=== PATIENT | female | born 1965 | race African-American/Black ===

== ENCOUNTER 2020-11-01 07:55 | Inpatient (IN) | payer MEDICAID, OTHER ==
[~2020-11-01] VITALS: Ht 160 cm; Wt 59.0 kg
[2020-11-01 09:18] LABS: BASOPHILS % 0.8 % (0.0-2.0); EOSINOPHILS % 2.6 % (0.0-5.0); HEMATOCRIT. 32.1 % (36.0-48.0); HEMOGLOBIN. 10.1 g/dL (12.0-16.0); LYMPHOCYTES % 8.7 % (20.0-50.0); MEAN CORPUSCULAR VOLUME 98.2 fL (81.0-99.0); MEAN PLATELET VOLUME 7.5 fl (7.4-10.4); MONOCYTES % 11.7 % (2.0-8.0); NEUTROPHILS % 76.2 % (40.0-76.0); PLATELET 217 x1000/uL (130-400); RED BLOOD CELL COUNT 3.27 mill/uL (4.2-5.4); RED CELL DISTRIBUTION WIDTH 15.4 % (11.6-14.6)
[2020-11-01 09:24] LABS: CHLORIDE 98 mEq/L (98-107)
[2020-11-01 09:29] LABS: ETHANOL BLOOD < 10 mg/dL
[2020-11-01 09:30] LABS: INR 1.2; PROTHROMBIN TIME 12.4 sec (9.6-11.0)
[2020-11-01] MEDS ORDERED: MORPHINE SULFATE 2 MG/ML CPJ (NOT FOR IM USE) IV ONE ×2 (09:30→11:30)
[2020-11-01] MEDS ORDERED: DEXTROSE 50% WATER 50ML SYRINGE IV ONE (11:00)
[2020-11-01] MEDS ORDERED: INSULIN REGULAR (HUMULIN R) 300UNITS/3ML VIAL IV ONE (11:00)
[2020-11-01] MEDS ORDERED: SODIUM POLYSTYRENE SULFONATE 15 G/60 ML BOT PO ONE (11:00)
[2020-11-01] MEDS ORDERED: CALCIUM GLUCONATE 100MG/ML 10ML VIAL IV ONE (11:00)
[2020-11-01] MEDS ORDERED: ONDANSETRON HCL 4MG/2ML INJ IV PRN (12:00)
[2020-11-01] MEDS ORDERED: DIPHENHYDRAMINE 50MG/ML VIAL IV PRN (12:00)
[2020-11-01 14:30] VITALS: BP 165/88
[2020-11-01 15:23] VITALS: BP 165/88
[2020-11-01] MEDS: CLONIDINE 0.1MG TABLET PO PRN ×2 (15:46→21:47)
[2020-11-01] MEDS: MORPHINE SULFATE 2 MG/ML CPJ (NOT FOR IM USE) IV PRN ×2 (16:51→21:08)
[2020-11-01] MEDS ORDERED: HYDRALAZINE 20MG/ML VIAL IV PRN (18:45)
[2020-11-01] MEDS: HYDROMORPHONE HCL/PF 2MG/ML CPJ IV PRN (19:27)
[2020-11-01 20:00] VITALS: BP 181/102
[2020-11-02] VITALS: BP 156/82
[2020-11-02] MEDS: HYDROMORPHONE HCL/PF 2MG/ML CPJ IV PRN ×2 (02:41→08:57)
[2020-11-02] MEDS: ACETAMINOPHEN 325MG TABLET PO PRN (04:36)
[2020-11-02 08:03] VITALS: BP 158/86
[2020-11-02 18:35] VITALS: BP 171/98
[2020-11-02] MEDS: CLONIDINE 0.1MG TABLET PO PRN (18:37)
[2020-11-02] MEDS: HYDROCODONE/ACETAMINOPHEN 5/325MG TABLET PO PRN (18:38)
[2020-11-02 20:00] VITALS: BP 143/85
[2020-11-03] VITALS: BP 149/90
[2020-11-03] MEDS: HYDROCODONE/ACETAMINOPHEN 5/325MG TABLET PO PRN ×2 (03:59→11:05)
[2020-11-03 04:00] VITALS: BP 151/92
[2020-11-03 08:00] VITALS: BP 165/97
[2020-11-03 12:00] VITALS: BP 169/100
[2020-11-03] MEDS: AMLODIPINE 5MG TABLET PO SCH (14:30)
[2020-11-03] MEDS: ACETAMINOPHEN 325MG TABLET PO PRN (14:30)
[2020-11-03] MEDS: LORAZEPAM 1MG TABLET PO PRN (14:30)
[2020-11-03 16:00] VITALS: BP 181/111
[2020-11-03] MEDS: CLONIDINE 0.1MG TABLET PO PRN ×2 (17:55→22:56)
[2020-11-03 23:47] VITALS: BP 163/98
[2020-11-04] MEDS: HYDROCODONE/ACETAMINOPHEN 5/325MG TABLET PO PRN ×2 (02:39→12:52)
[2020-11-04 03:59] VITALS: BP 155/90
[2020-11-04 08:00] VITALS: BP 196/85
[2020-11-04] MEDS: CLONIDINE 0.1MG TABLET PO PRN ×2 (08:42→15:02)
[2020-11-04] MEDS: AMLODIPINE 5MG TABLET PO SCH (08:42)
[2020-11-04 12:00] VITALS: BP 172/114
[2020-11-04 16:00] VITALS: BP 181/95
[2020-11-04] MEDS: LORAZEPAM 1MG TABLET PO PRN (17:11)
[2020-11-04] MEDS: ACETAMINOPHEN 325MG TABLET PO PRN (17:12)
[2020-11-04 20:00] VITALS: BP 172/104
[2020-11-05 04:00] VITALS: BP 209/129
[2020-11-05] MEDS: CLONIDINE 0.1MG TABLET PO PRN ×2 (05:23→12:01)
[2020-11-05 08:00] VITALS: BP 174/104
[2020-11-05] MEDS: AMLODIPINE 5MG TABLET PO SCH (08:29)
[2020-11-05] MEDS: HYDROCODONE/ACETAMINOPHEN 5/325MG TABLET PO PRN (08:29)
[2020-11-05] MEDS: LORAZEPAM 1MG TABLET PO PRN (12:01)
[2020-11-05 20:00] VITALS: BP 169/99
[2020-11-06 04:00] VITALS: BP 165/97
[2020-11-06 08:08] VITALS: BP 166/95
[2020-11-06] MEDS: AMLODIPINE 5MG TABLET PO SCH ×2 (08:51→16:54)
[2020-11-06] MEDS: HYDROCODONE/ACETAMINOPHEN 5/325MG TABLET PO PRN ×2 (09:58→16:55)
[2020-11-06 12:01] VITALS: BP 173/107
[2020-11-06] MEDS: CLONIDINE 0.1MG TABLET PO PRN (16:53)
[2020-11-06 16:55] VITALS: BP 180/102
[2020-11-06 20:00] VITALS: BP 154/94
[2020-11-07 04:00] VITALS: BP 176/103
[2020-11-07] MEDS: HYDROCODONE/ACETAMINOPHEN 5/325MG TABLET PO PRN ×2 (05:16→17:53)
[2020-11-07] MEDS: AMLODIPINE 5MG TABLET PO SCH (08:22)
[2020-11-07 11:00] VITALS: BP 177/101
[2020-11-07] MEDS ORDERED: HYDRALAZINE 10 MG in SODIUM CHLORIDE 0.9% 49.5 ML IV PRN (11:15)
[2020-11-07] MEDS: CLONIDINE 0.1MG TABLET PO PRN ×2 (11:25→17:53)
[2020-11-07 20:00] VITALS: BP 162/86
[2020-11-08 08:00] VITALS: BP 179/105
[2020-11-08] MEDS: AMLODIPINE 5MG TABLET PO SCH (10:15)
[2020-11-08] MEDS: HYDROCODONE/ACETAMINOPHEN 5/325MG TABLET PO PRN (10:15)
[2020-11-08 12:00] VITALS: BP 183/106
[2020-11-08] MEDS: CLONIDINE 0.1MG TABLET PO PRN (13:18)
[2020-11-08] MEDS: LORAZEPAM 1MG TABLET PO PRN (22:28)
[2020-11-09] VITALS: BP 186/115
[2020-11-09 04:00] VITALS: BP 131/80
[2020-11-09] MEDS: CLONIDINE 0.1MG TABLET PO PRN (09:36)
[2020-11-09] MEDS: AMLODIPINE 5MG TABLET PO SCH (09:36)
[2020-11-09] MEDS: LORAZEPAM 1MG TABLET PO PRN (09:36)
[2020-11-09] MEDS: HYDROCODONE/ACETAMINOPHEN 5/325MG TABLET PO PRN (16:29)
[2020-11-09] MEDS ORDERED: HYDRALAZINE 20MG/ML VIAL IV PRN (23:00)
[2020-11-10] MEDS: HYDROCODONE/ACETAMINOPHEN 5/325MG TABLET PO PRN ×2 (04:59→09:09)
[2020-11-10] MEDS: AMLODIPINE 5MG TABLET PO SCH (08:59)
[2020-11-10] MEDS: CLONIDINE 0.1MG TABLET PO PRN (08:59)
[2020-11-10 09:00] VITALS: BP 189/110
[2020-11-11] VITALS: BP 173/98
[2020-11-11] MEDS: HYDROCODONE/ACETAMINOPHEN 5/325MG TABLET PO PRN ×2 (00:12→16:37)
[2020-11-11 08:00] VITALS: BP 198/99
[2020-11-11] MEDS: AMLODIPINE 5MG TABLET PO SCH (09:42)
[2020-11-11 12:00] VITALS: BP 148/90
[2020-11-11 16:00] VITALS: BP 200/119
[2020-11-11] MEDS: CLONIDINE 0.1MG TABLET PO PRN (16:36)
[2020-11-11 19:12] LABS: BASOPHILS % 1.4 % (0.0-2.0); EOSINOPHILS % 6.6 % (0.0-5.0); HEMATOCRIT. 24.5 % (36.0-48.0); HEMOGLOBIN. 8.1 g/dL (12.0-16.0); LYMPHOCYTES % 7.6 % (20.0-50.0); MEAN CORPUSCULAR HEMOGLOBIN 31.9 pg (28.0-32.0); MEAN CORPUSCULAR VOLUME 96.9 fL (81.0-99.0); MEAN PLATELET VOLUME 8.3 fl (7.4-10.4); MONOCYTES % 12.2 % (2.0-8.0); NEUTROPHILS % 72.2 % (40.0-76.0); PLATELET 248 x1000/uL (130-400); RED BLOOD CELL COUNT 2.53 mill/uL (4.2-5.4); RED CELL DISTRIBUTION WIDTH 14.7 % (11.6-14.6)
[2020-11-11 19:54] LABS: HEPATITIS B SURFACE AB < 3.1 mIU/mL
[2020-11-11 20:00] VITALS: BP 182/99
[2020-11-11 20:04] LABS: HEPATITIS B SURFACE ANTIGEN NEGATIVE
[2020-11-11 20:34] LABS: HEPATITIS A AB IGM NEGATIVE (NEGATIVE)
[2020-11-12] VITALS: BP 181/106
[2020-11-12 04:00] VITALS: BP 195/108
[2020-11-12 08:00] VITALS: BP 171/104
[2020-11-12] MEDS: HYDROCODONE/ACETAMINOPHEN 5/325MG TABLET PO PRN ×2 (10:30→15:45)
[2020-11-12] MEDS: AMLODIPINE 5MG TABLET PO SCH (10:33)
[2020-11-12 15:32] VITALS: BP 177/104
[2020-11-12] MEDS: CLONIDINE 0.1MG TABLET PO PRN (15:35)
[2020-11-13 05:08] LABS: HIV SCREEN 4G Non Reactive (Non Reactive)
[2020-11-13 08:00] VITALS: BP 160/90
[2020-11-13] MEDS: HYDROCODONE/ACETAMINOPHEN 5/325MG TABLET PO PRN (10:40)
[2020-11-13] MEDS: AMLODIPINE 5MG TABLET PO SCH (10:40)
[2020-11-13] MEDS: LORAZEPAM 1MG TABLET PO PRN (16:46)
[2020-11-13 20:00] VITALS: BP 167/90
[2020-11-13 22:00] VITALS: BP 159/93
[2020-11-14] MEDS: ACETAMINOPHEN 325MG TABLET PO PRN ×4 (02:14→21:52)
[2020-11-14 04:00] VITALS: BP 159/89
[2020-11-14] MEDS: AMLODIPINE 5MG TABLET PO SCH (09:24)
[2020-11-14 16:00] VITALS: BP 170/97
[2020-11-14] MEDS: CLONIDINE 0.1MG TABLET PO PRN (16:36)
[2020-11-15] MEDS: AMLODIPINE 5MG TABLET PO SCH (08:47)
[2020-11-15] MEDS: HYDROCODONE/ACETAMINOPHEN 5/325MG TABLET PO PRN (12:47)
[2020-11-15] MEDS: ACETAMINOPHEN 325MG TABLET PO PRN (21:03)
[2020-11-16] MEDS: AMLODIPINE 5MG TABLET PO SCH (09:23)
[2020-11-16] MEDS: ACETAMINOPHEN 325MG TABLET PO PRN (13:01)
[2020-11-16 20:00] VITALS: BP 171/101
[2020-11-16] MEDS: HYDROCODONE/ACETAMINOPHEN 5/325MG TABLET PO PRN (20:27)
[2020-11-16] MEDS: CLONIDINE 0.1MG TABLET PO PRN (20:28)
[2020-11-17] MEDS: HYDROCODONE/ACETAMINOPHEN 5/325MG TABLET PO PRN (02:53)
[2020-11-17 04:00] VITALS: BP 165/91
[2020-11-17 08:00] VITALS: BP 163/96
[2020-11-17] MEDS: AMLODIPINE 5MG TABLET PO SCH (09:00)
[2020-11-17 12:00] VITALS: BP 162/93
[2020-11-17] MEDS ORDERED: AMLO5TAB88 PO (15:42)
[2020-11-17 16:00] VITALS: BP 143/79
[2020-11-17] MEDS: ACETAMINOPHEN 325MG TABLET PO PRN (22:21)
[2020-11-17] MEDS: CLONIDINE 0.1MG TABLET PO PRN (23:52)
[2020-11-18] VITALS: BP 189/104
[2020-11-18 00:12] LABS: HEMATOCRIT. 22.9 % (36.0-48.0); HEMOGLOBIN. 7.4 g/dL (12.0-16.0); MEAN CORPUSCULAR HEMOGLOBIN 31.5 pg (28.0-32.0); MEAN CORPUSCULAR VOLUME 97.5 fL (81.0-99.0); MEAN PLATELET VOLUME 8.3 fl (7.4-10.4); PLATELET 222 x1000/uL (130-400); RED BLOOD CELL COUNT 2.35 mill/uL (4.2-5.4); RED CELL DISTRIBUTION WIDTH 14.6 % (11.6-14.6)
[2020-11-18] MEDS: ACETAMINOPHEN 325MG TABLET PO PRN (06:33)
[2020-11-18 07:14] LABS: PLATELET ESTIMATE NORMAL
[2020-11-18] MEDS: AMLODIPINE 5MG TABLET PO SCH (09:00)
[2020-11-18] MEDS ORDERED: HYDRALAZINE HCL 50MG TABLET PO SCH (14:00)
[2020-11-19] MEDS ORDERED: EPOETIN ALFA 10000UNITS/ML VIAL SUBCUT SCH (21:00)
== END 2020-11-18 10:10 | disposition home or self-care (01) | DRG 425 ==
LOC: ER 08:14 → 6WST 11:10 → EDBEDREQTM 11:12 → EDBEDREQ 11:12 → ENRESERV 13:08 → 6EST 11-07 10:32 → 7WST 11-09 22:52 → 8WST 11-11 01:34
PROVIDERS: ADMIT Internal Medicine; ATTEND Internal Medicine
PROC: 5A1D70Z Performance of Urinary Filtration, Intermittent, Less than 6 Hours Per Day (ICD-10-PCS; principal; 2020-11-01)
PROC: 5A1D70Z Performance of Urinary Filtration, Intermittent, Less than 6 Hours Per Day (ICD-10-PCS; 2020-11-03)
PROC: 5A1D70Z Performance of Urinary Filtration, Intermittent, Less than 6 Hours Per Day (ICD-10-PCS; 2020-11-04)
PROC: 5A1D70Z Performance of Urinary Filtration, Intermittent, Less than 6 Hours Per Day (ICD-10-PCS; 2020-11-09)
PROC: 5A1D70Z Performance of Urinary Filtration, Intermittent, Less than 6 Hours Per Day (ICD-10-PCS; 2020-11-14)
PROC: 5A1D70Z Performance of Urinary Filtration, Intermittent, Less than 6 Hours Per Day (ICD-10-PCS; 2020-11-15)
PROC: 5A1D70Z Performance of Urinary Filtration, Intermittent, Less than 6 Hours Per Day (ICD-10-PCS; 2020-11-16)
DX: E87.5 Hyperkalemia (principal); I12.0 Hypertensive chronic kidney disease with stage 5 chronic kidney disease or end stage renal disease; Z99.2 Dependence on renal dialysis; N18.6 End stage renal disease; G89.29 Other chronic pain; D64.9 Anemia, unspecified; Z20.822 Contact with and (suspected) exposure to COVID-19; Z87.891 Personal history of nicotine dependence; Z91.15 Patient's noncompliance with renal dialysis; Z91.19 Patient's noncompliance with other medical treatment and regimen; J96.01 Acute respiratory failure with hypoxia
CPT/HCPCS: 36415; 71045; 80048; 80053; 80320; 83880; 84484; 85025; 86705; 86706; 86709; 86803; 87340; 87389; 87426; 97116; 97162; 97530; 97535; 99291; J0360; J0610; J1170; J1815; J2270; J2405; U0003; G0480